=== PATIENT | female | born 1950 | race Asian ===

== ENCOUNTER 2019-03-03 15:10 | Outpatient (CLI) | payer MEDICARE ==
[~2019-03-03 15:10] MED LIST: AZELASTINE; FLOVENT; HYDR1LIQ6 PO; LEVO25TA4 PO; MONT10TA6 PO
== END 2019-03-03 23:59 | disposition home or self-care (01) ==
LOC: CFH 15:10
PROVIDERS: ATTEND Family Medicine
DX: R60.0 Localized edema (principal); M79.662 Pain in left lower leg
CPT/HCPCS: 93970

== ENCOUNTER → 2019-09-01 | Outpatient (CLI) | payer MEDICARE | END | disposition home or self-care (01) | LOC: CFH 14:51 | PROVIDERS: ATTEND Surgery | DX: M79.662 Pain in left lower leg (principal); M79.661 Pain in right lower leg | CPT/HCPCS: 93970 ==

== ENCOUNTER → 2020-02-10 | Outpatient (CLI) | payer MEDICARE | END | disposition home or self-care (01) | LOC: RAD 09:23 | PROVIDERS: ATTEND Psychiatry & Neurology Neurology | DX: M16.0 Bilateral primary osteoarthritis of hip (principal); M77.32 Calcaneal spur, left foot; M25.78 Osteophyte, vertebrae; M54.5 Low back pain; G60.3 Idiopathic progressive neuropathy; M79.18 Myalgia, other site | CPT/HCPCS: 72110; 72170 ==